=== PATIENT | male | born 1945 | race Caucasian/White ===

== ENCOUNTER 2018-02-05 22:24 | Emergency (ER) | payer MEDICARE, MEDICAID ==
[~2018-02-05] VITALS: Ht 175.3 cm; Wt 94.8 kg
[2018-02-05 22:38] VITALS: BP 154/75
[2018-02-05] MEDS ORDERED: DEXTROMETHORPHAN 30 MG/5 ML ORAL SOL PO PRN (23:00)
== END 2018-02-06 00:25 | disposition home or self-care (01) ==
LOC: ED 23:49
DX: R05 Cough (principal); I10 Essential (primary) hypertension; Z95.1 Presence of aortocoronary bypass graft
CPT/HCPCS: 71046; 99284